=== PATIENT | male | born 1995 | race Caucasian/White ===

== ENCOUNTER 2022-06-23 14:19 | Outpatient (CLI) | payer BC | END 2022-06-23 14:20 | disposition home or self-care (01) | LOC: BICRAD 14:19 | PROVIDERS: ATTEND Student in an Organized Health Care Education/Training Program | DX: M25.551 Pain in right hip (principal) ==

== ENCOUNTER 2022-12-14 03:24 | Emergency (ER) | payer BC ==
[2022-12-14] MEDS ORDERED: Ketorolac Tromethamine 30 MG/ML VIAL ONE (05:11)
== END 2022-12-14 06:10 | disposition home or self-care (01) ==
LOC: ERS 03:24
DX: R09.1 Pleurisy (principal)
CPT/HCPCS: 71045; 93005; 96372; J1885